=== PATIENT | female | born 1965 | race Caucasian/White ===

== ENCOUNTER → 2021-07-25 | Outpatient (CLI) | payer OTHER ==
[~2021-07-25] MED LIST: ALIGN4 MG; PROTONIX40 MG; ZYRTEC10 MG
== END ==
LOC: MRI 09:24
PROVIDERS: ATTEND Pain Medicine Pain Medicine
DX: M54.16 Radiculopathy, lumbar region (principal); M53.3 Sacrococcygeal disorders, not elsewhere classified
CPT/HCPCS: 72148; 72195